=== PATIENT | male | born 1965 | race Caucasian/White ===

== ENCOUNTER → 2018-05-11 | Outpatient (CLI) | payer BC ==
[~2018-05-11] MED LIST: CLX/20 PO; HYDR-4079 PO; PANT40TA PO; RXC5 PO
--- NOTE | 2018-05-12 08:24 | EEG Procedure Note ---
EEG Procedure Note Date of Service May 11, 2018. Start / End Times Start Time: 1435 End Time: 1455 Referring Physician Meena BOYKIN-Raegan History 53-year-old history of syncopal and seizure activity with intermittent headaches Home Medication List Scheduled Citalopram (Citalopram Hydrobromide), 20 MG PO QPM Pantoprazole (Protonix), 40 MG PO QPM Scheduled PRN Hydrocodone/Acetaminophen 10MG/325MG ([place] 10MG/325MG), 1 TAB PO Q4H PRN for Pain Oxycodone HCl (Oxycodone HCl), 5 MG PO Q4H PRN for moderate pain (pain scale 4-6 ) Description This is a 21 electrode EEG with a single channel dedicated to limited EKG. The electrodes were placed in accordance with the International 10-20 system. Interpretation the predominant background activity consists of a somewhat irregular 10 hertz rhythm of up to 60 microvolts in amplitude, seen symmetrically over the posterior head regions bilaterally spreading anteriorly. This activity had some attenuation with eye opening and other alerting procedures. A moderate amount of muscle artifact was present with some mild movement artifact. This hindered interpretation to a degree from time to time but not to any significant nature overall. Photic stimulation was performed and listed no driving response and no abnormal responses were noted. Hyperventilation was performed for 3 minutes with reasonable effort and again no abnormalities were seen. Throughout this recording, no focal abnormalities, potentially epileptogenic discharges, or abnormal slow activity was seen. The patient did not enter the drowsy state or other stages of sleep. In summary, this study is normal during wakefulness with no focal abnormalities or potentially epileptogenic discharges. Clinical Correlation The absence of potentially epileptogenic activity does not exclude a seizure disorder since inter ictally EEGs can be normal and clinical correlation is required.
== END | disposition home or self-care (01) ==
LOC: C.NEUR 14:06
PROVIDERS: ATTEND Physician Assistant
DX: R55 Syncope and collapse (principal)

== ENCOUNTER → 2018-05-11 | Outpatient (CLI) | payer BC ==
[~2018-05-11] MED LIST changes: +GADAVIST IV PRN
--- NOTE | 2018-05-11 14:07 | DIAGNOSTIC IMAGING REPORT ---
BRAIN COMBO HISTORY: 53 years-old Male HEADACHE acute headache with prior cervical spine surgery COMPARISON: None available TECHNIQUE: Multiplanar multisequence MRI of the brain was obtained both with and without the use of 8 mL Gadavist FINDINGS: No restricted diffusion to suggest acute or subacute infarct. Atomic Spectroscopist localizer images were not submitted at time of dictation. Midline structures including the corpus callosum, brainstem, optic chiasm, pituitary and pineal glands appear unremarkable on the sagittal T1 series. No cerebellar tonsillar herniation. Degenerative changes are noted about the imaged cervical spine. There is no acute intracranial hemorrhage, midline shift, abnormal extra-axial collections, hydrocephalus or intracranial mass. Mild degree of scattered T2/FLAIR prolongation about the subcortical and periventricular white matter suggest chronic microvascular ischemic changes. The major flow voids appear patent. Orbits are symmetric and appear to be within normal limits. Moderate mucoperiosteal thickening with aerated secretions noted within the left maxillary sinus. Mild bilateral frontal and ethmoid sinus mucosal thickening is also present. Soft tissues and skull appear unremarkable. There is no abnormal intra-axial or extra-axial enhancement. IMPRESSION: 1. No acute intracranial abnormality or abnormal enhancement. 2. Suggested mild chronic microvascular ischemic changes. 3. Paranasal sinus disease as above. The above report was generated using voice recognition software. It may contain grammatical, syntax or spelling errors. Electronically signed by: Mazin Patterson M.D. 05/11/2018 2:06 PM Dictated Date/Time: 05/11/2018 2:00 PM
== END | disposition home or self-care (01) ==
LOC: C.MRIBC 13:25
PROVIDERS: ATTEND Physician Assistant
DX: R55 Syncope and collapse (principal); R51 Headache; J32.9 Chronic sinusitis, unspecified